=== PATIENT | female | born 1985 | race Caucasian/White ===

== ENCOUNTER → 2017-01-05 | Outpatient (CLI) | payer MEDICAID ==
[2017-01-05 08:06] LABS: Basophils # (A) 0.1 k/uL (0-0.2); Basophils % (A) 1 %; CH 29.7; CHCM 34.2; Eosinophils # (A) 0.1 k/uL (0-0.7); Eosinophils % (A) 1 %; HCT 41.9 % (34.0-46.0); Luc # (Auto) 0.25; Luc % (Auto) 3; Lymphocytes # (A) 2.8 k/uL (1.0-4.8); Lymphocytes % (A) 36 %; MCH 29.1 pg (25.0-35.0); MCHC 33.3 g/dL (31.0-37.0); MCV 87.4 fL (80.0-100.0); Mean Platelet Volume 6.4; Monocytes # (A) 0.4 k/uL (0-1.0); Monocytes % (A) 5 %; Neutrophils # (A) 4.2 k/uL (1.3-7.7); Neutrophils % (A) 54 %; RDW 12.6 % (11.5-15.5); WBC 7.7 k/uL (3.8-10.6); WBC (Perox) 7.85
[2017-01-05 08:31] LABS: ALT 39 U/L (9-52); AST 25 U/L (14-36); Alkaline Phosphatase 109 U/L (38-126); Anion Gap 11 mmol/L; Blood Urea Nitrogen 12 mg/dL (7-17); Calcium 9.3 mg/dL (8.4-10.2); Carbon Dioxide 24 mmol/L (22-30); Chloride 107 mmol/L (98-107); Cholesterol 195 mg/dL (<200); Glucose 100 mg/dL (74-99); HDL Cholesterol 40 mg/dL (40-60); Magnesium 1.8 mg/dL (1.6-2.3); Non-African American GFR(MDRD) >60 (>60 ml/min/1.73 sqM); Potassium 4.3 mmol/L (3.5-5.1); Sodium 142 mmol/L (137-145); Total Bilirubin 0.6 mg/dL (0.2-1.3); Total Protein 7.7 g/dL (6.3-8.2); Triglycerides 154 mg/dL (<150)
[2017-01-05 10:37] LABS: Hemoglobin A1C 5.1 % (4.2-6.1)
== END | disposition home or self-care (01) ==
LOC: LABWHC1 07:04
PROVIDERS: ATTEND Family Medicine
DX: E66.01 Morbid (severe) obesity due to excess calories (principal); R60.9 Edema, unspecified; K21.9 Gastro-esophageal reflux disease without esophagitis
CPT/HCPCS: 36415; 80053; 80061; 83036; 83735; 84439; 84443; 85025

== ENCOUNTER → 2018-01-11 | Outpatient (CLI) | payer MEDICAID ==
[2018-01-11 08:26] LABS: T4, Free (Free Thyroxine) 1.02 ng/dL (0.78-2.19)
--- NOTE | 2018-01-11 11:41 | US ---
EXAMINATION TYPE: US pelvis complete transvag DATE OF EXAM: 01/11/2018 COMPARISON: NONE CLINICAL HISTORY: N91.2 Amenorrhea. TECHNIQUE: Transabdominal sonographic images of the pelvis were acquired. Transvaginal sonographic images were medically necessary to better assess the following anatomy: ovaries and endometrium Date of LMP: 4 months prior EXAM MEASUREMENTS: Uterus: 8.3 x 4.4 x 4.3 cm Endometrial Stripe: 0.5 cm Right Ovary: 2.2 x 1.5 x 1.7 cm Left Ovary: 2.1 x 1.5 x 1.7 cm 1. Uterus: heterogeneous, probably fibroid lower measuring 1.7 x 1.3 x 1.5cm and nabothian cysts are noted in the cervix 2. Endometrium: wnl 3. Right Ovary: somewhat obscured by overlying bowel gas, portions visualized wnl 4. Left Ovary: somewhat obscured by overlying bowel gas, portions visualized wnl wnl5. Bilateral Adnexa: wnl 6. Posterior cul-de-sac: wnl IMPRESSION: Exam is somewhat limited. Consider follow-up as indicated.
== END | disposition home or self-care (01) ==
LOC: RADUSWWP 07:00
PROVIDERS: ATTEND Obstetrics & Gynecology
DX: N91.2 Amenorrhea, unspecified (principal)
CPT/HCPCS: 36415; 76830; 76856; 84146; 84439; 84443

== ENCOUNTER 2018-04-01 19:09 | Emergency (ER) | payer MEDICAID ==
[2018-04-01 19:43] VITALS: BP 123/83; PULSE 95; RESP 18; TEMP 99
--- NOTE | 2018-04-01 20:13 | ED ---
Lower Extremity Injury HPI - General Chief Complaint: Extremity Injury, Lower Stated Complaint: L Leg Injury Time Seen by Provider: 04/01/18 19:52 Source: patient, RN notes reviewed, old records reviewed Mode of arrival: wheelchair Limitations: physical limitation - History of Present Illness Initial Comments: This Patient is a 32-year-old female presents emergency department today chief complaint of a sudden popping sensation in her lower calf she was running while playing baseball today. Patient states that she felt a pop with of the back. Unable to bear weight afterwards. She denies any foot or ankle pain. She states the pain is in the medial calf radiating towards the knee. Patient states that she's had previous ankle and foot surgery. She denies any other symptoms at this time. - Related Data Previous Rx's Medication Instructions Recorded Acetaminophen with Codeine 1 tab PO Q6H PRN 3 Days #12 tab 04/01/18 [Tylenol w/codeine #3] Ibuprofen 600 mg PO TID #20 tablet 04/01/18 Allergies Allergy/AdvReac Type Severity Reaction Status Date / Time No Known Allergies Allergy Verified 04/01/18 19:43 Review of Systems ROS Statement: Those systems with pertinent positive or pertinent negative responses have been documented in the HPI. ROS Other: All systems not noted in ROS Statement are negative. Past Medical History Past Medical History: GERD/Reflux Additional Past Medical History / Comment(s): irregular oeriods History of Any Multi-Drug Resistant Organisms: None Reported Past Surgical History: Tonsillectomy Additional Past Surgical History / Comment(s): pyl. cyst Past Psychological History: No Psychological Hx Reported Smoking Status: Never smoker Past Alcohol Use History: None Reported Past Drug Use History: None Reported General Exam - General Exam Comments Initial Comments: This is a 32-year-old female. Alert and oriented. No significant distress. Limitations: physical limitation General appearance: alert, in no apparent distress Head exam: Present: atraumatic, normocephalic, normal inspection Eye exam: Present: normal appearance, PERRL, EOMI. Absent: scleral icterus, conjunctival injection, periorbital swelling ENT exam: Present: normal exam, mucous membranes moist Neck exam: Present: normal inspection Respiratory exam: Present: normal lung sounds bilaterally. Absent: respiratory distress, wheezes, rales, rhonchi, stridor Cardiovascular Exam: Present: regular rate, normal rhythm, normal heart sounds. Absent: systolic murmur, diastolic murmur, rubs, gallop, clicks GI/Abdominal exam: Present: soft, normal bowel sounds. Absent: distended, tenderness, guarding, rebound, rigid Extremities exam: Present: normal inspection, full ROM, normal capillary refill. Absent: tenderness, pedal edema, joint swelling, calf tenderness Left Knee exam: Present: normal inspection, full ROM Lower Leg exam: Present: full ROM, tenderness (Patient has tenderness over the medial gastrocnemius.), swelling Ankle exam: Present: normal inspection, full ROM Foot/Toe exam: Present: normal inspection, full ROM Neurovascular tendon exam: Present: no vascular compromise Gait: observed and limited by pain Back exam: Present: normal inspection Neurological exam: Present: alert, oriented X3, CN II-XII intact Psychiatric exam: Present: normal affect, normal mood Course Vital Signs 04/01/18 19:40 Temperature 99.0 F Pulse Rate 95 Respiratory 18 Rate Blood Pressure 123/83 O2 Sat by Pulse 97 Oximetry Medical Decision Making - Medical Decision Making Patient is a 32-year-old feel presents today with chief complaint of left leg pain after she was running felt a pop in her calf. At this time patient's x- rays of her tib-fib and knee were reviewed and negative for any acute process. She is quite tender over the medial gastrocnemius. Ultrasound of the area was performed check for soft tissue swelling or masses. They don't see any fluid collection. No evidence of popliteal cyst. At this time Patient informed of results. 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 Discharged with crutches and temperature medicine and pain medicine. Discussed PCP follow-up all. All questions answered return parameters were discussed. - Radiology Data Radiology results: report reviewed X-ray of the knee and tib-fib are negative for any acute process. Ultrasound of the laceration is evidence of fluid collection or popliteal mass. Disposition Clinical Impression: Gastrocnemius muscle tear, Sprain of leg Disposition: HOME SELF-CARE Condition: Good Instructions: Leg Sprain (ED) Additional Instructions: Patient has follow-up with primary care physician. Return to emergency department if any alarming signs or symptoms occur. Follow-up with orthopedic physician as well. Prescriptions: Acetaminophen with Codeine [Tylenol w/codeine #3] 1 tab PO Q6H PRN 3 Days #12 tab PRN Reason: Pain Ibuprofen 600 mg PO TID #20 tablet Is patient prescribed a controlled substance at d/c from ED?: Yes If prescribed controlled substance>3 days was MAPS reviewed?: Prescribed <3 Days If Rx opioid, was Start Talking consent form obtained?: Yes Referrals: Kandi De Oliveira MD [Primary Care Provider] - 1-2 days Valdemar Nevarez MD [Medical Doctor] - 1-2 days Time of Disposition: 20:59
--- NOTE | 2018-04-01 20:44 | XR ---
EXAMINATION TYPE: XR tibia fibula LT DATE OF EXAM: 04/01/2018 COMPARISON: NONE HISTORY: Pain TECHNIQUE: 2 views FINDINGS: I see no fracture nor dislocation. Knee joint and ankle joint appear intact. IMPRESSION: Negative left tibia and fibula exam.
--- NOTE | 2018-04-01 20:44 | XR ---
EXAMINATION TYPE: XR knee complete LT DATE OF EXAM: 04/01/2018 COMPARISON: NONE HISTORY: Pain TECHNIQUE: 3 views FINDINGS: I see no fracture nor dislocation. Joint spaces are normal. There is no sign of knee joint effusion. IMPRESSION: Negative left knee exam.
--- NOTE | 2018-04-01 20:46 | US ---
EXAMINATION TYPE: US extremity nonvasc mass LT DATE OF EXAM: 04/01/2018 COMPARISON: NONE CLINICAL HISTORY: Pain. Lt knee lump running playing softball heard a pop. No fluid pocket visualized. IMPRESSION: No solid or cystic mass identified. There is no evidence of popliteal cyst.
== END 2018-04-01 21:21 | disposition home or self-care (01) ==
LOC: EC 19:09
DX: S86.812A Strain of other muscle(s) and tendon(s) at lower leg level, left leg, initial encounter (principal); X58.XXXA Exposure to other specified factors, initial encounter; Y93.64 Activity, baseball
CPT/HCPCS: 73590; 73562; 76882; 99284; L1830

== ENCOUNTER → 2018-09-17 | Outpatient (CLI) | payer MEDICAID ==
[2018-09-17 07:46] LABS: Basophils # (A) 0.1 k/uL (0-0.2); Basophils % (A) 1 %; Eosinophils # (A) 0.3 k/uL (0-0.7); Eosinophils % (A) 3 %; HCT 40.4 % (34.0-46.0); Lymphocytes # (A) 2.4 k/uL (1.0-4.8); Lymphocytes % (A) 29 %; MCH 27.6 pg (25.0-35.0); MCHC 32.1 g/dL (31.0-37.0); MCV 86.1 fL (80.0-100.0); Mean Platelet Volume 5.8; Monocytes # (A) 0.3 k/uL (0-1.0); Monocytes % (A) 4 %; Neutrophils # (A) 5.2 k/uL (1.3-7.7); Neutrophils % (A) 62 %; Platelet Count 393 k/uL (150-450); RBC 4.69 m/uL (3.80-5.40); RDW 13.1 % (11.5-15.5); WBC 8.4 k/uL (3.8-10.6)
[2018-09-17 12:33] LABS: Albumin/Globulin Ratio 1.54 (1.20-2.10); Anion Gap 10.7 mmol/L (4.00-12.00); Calcium 9.1 mg/dL (8.7-10.3); Carbon Dioxide 25.3 mmol/L (21.6-31.8); Globulin 2.6 g/dL (1.6-3.3); LDL Cholesterol,Calculated 121.2 mg/dL (0.0-131.0); Potassium 4.4 mmol/L (3.5-5.5); Total Bilirubin 0.2 mg/dL (0.2-1.2); Total Protein 6.6 g/dL (6.2-8.2); VLDL Calculation 24.8 mg/dL (5.00-40.00)
[2018-09-17 15:18] LABS: Hemoglobin A1C 5.3 % (4.0-6.0)
== END | disposition home or self-care (01) ==
LOC: LABWHC1 07:19
PROVIDERS: ATTEND Family Medicine
DX: Z00.00 Encounter for general adult medical examination without abnormal findings (principal); R73.01 Impaired fasting glucose; Q63.9 Congenital malformation of kidney, unspecified; E66.01 Morbid (severe) obesity due to excess calories; Z68.42 Body mass index [BMI] 45.0-49.9, adult
CPT/HCPCS: 36415; 80053; 80061; 83036; 85025

== ENCOUNTER → 2019-02-03 | Outpatient (CLI) | payer MEDICAID ==
--- NOTE | 2019-02-04 10:25 | MR ---
EXAMINATION TYPE: MR knee RT wo con DATE OF EXAM: 02/03/2019 COMPARISON: 04/01/2018 HISTORY: R knee pain TECHNIQUE: Multiplanar, multisequence imaging of the right knee is performed without IV contrast. FINDINGS: MEDIAL MENISCUS: There is increased signal within the posterior horn of the medial meniscus without c ontinuity with the articular surface related to either meniscal contusion or myxoid degeneration. How ever there is a focal cleft of the meniscal root representing small radial tear. LATERAL MENISCUS: Anterior and posterior horns are intact without tear. CRUCIATE LIGAMENTS: The anterior and posterior cruciate ligaments are intact and unremarkable. COLLATERAL LIGAMENTS: The medial collateral ligament and lateral collateral ligament complex are inta ct. However there is a small amount of increased signal seen over the medial collateral ligament that is nonspecific. Correlate for medial collateral ligament bursitis. EXTENSOR MECHANISM: Visualized quadriceps and patellar tendons are intact. EFFUSION: No significant suprapatellar joint effusion. POPLITEAL CYST: No popliteal/russell cyst. TRICOMPARTMENT SPACES: Joint spaces are maintained CARTILAGE: As a focal area of undermining of the trochlear cartilage. Lateral compartment and patello femoral compartment are otherwise unremarkable. There is a partial chondral defect of the weightbeari ng surface of the medial femoral condyle measuring 1.1 cm. No underlying bone marrow edema. BONE MARROW SIGNAL: No focal abnormal marrow signal is appreciated. OTHER: Minimal prepatellar and infrapatellar soft tissue swelling is seen without increased signal o f the patellar tendon or quadriceps tendon. IMPRESSION: 1. Small radial tear from the inferior articular surface of the posterior horn of the medial meniscus as it meets the meniscal root. There is associated intrameniscal signal of the posterior horn repres enting either meniscal contusion or myxoid degeneration. 2. Very minimal increased signal over the medial collateral ligament is nonspecific and could relate to mild medial collateral ligament bursitis. 3. Mild chondrosis of the medial compartment and patellofemoral compartment.
== END | disposition home or self-care (01) ==
LOC: RADMRIMAIN 12:39
PROVIDERS: ATTEND Orthopaedic Surgery
DX: S83.241A Other tear of medial meniscus, current injury, right knee, initial encounter (principal); M76.41 Tibial collateral bursitis [Pellegrini-Stieda], right leg; M94.8X6 Other specified disorders of cartilage, lower leg

== ENCOUNTER → 2019-07-15 | Outpatient (CLI) | payer MEDICAID ==
--- NOTE | 2019-07-15 08:49 | MM ---
Reason for exam: screening (asymptomatic). Baseline mammogram. History: Patient is nulliparous. Family history of breast cancer in grandmother at age 50 and breast cancer in paternal aunt at age 63. Taking hormonal contraceptives beginning at age 24. Physical Findings: Nurse did not find any significant physical abnormalities on exam. MG 3D Screening Mammo W/Cad Bilateral CC and MLO view(s) were taken. There are scattered fibroglandular densities. No suspicious abnormality. These results were verbally communicated with the patient and result sheet given to the patient on 07/15/19. ASSESSMENT: Negative, BI-RAD 1 RECOMMENDATION: Routine screening mammogram of both breasts in 1 year. (family history)
== END | disposition home or self-care (01) ==
LOC: RADMAMWWP 06:59
PROVIDERS: ATTEND Obstetrics & Gynecology
DX: Z12.31 Encounter for screening mammogram for malignant neoplasm of breast (principal)
CPT/HCPCS: 77063; 77067

== ENCOUNTER → 2020-06-19 | Outpatient (CLI) | payer MEDICAID ==
[2020-06-19 14:55] LABS: Chol/HDL Ratio 4.41
[2020-06-19 15:04] LABS: Estradiol 25.3 pg/mL; Follicle Stimulating Hormone 6.4 mIU/mL; Luteinizing Hormone 2.3 mIU/mL
[2020-06-19 15:16] LABS: Hemoglobin A1C 5.2 % (4.0-6.0)
[2020-06-19 15:22] LABS: DHEA Sulfate 26.1 ug/dL (26.0-430.0)
[2020-06-19 15:48] LABS: Insulin Level 25.3 mIU/mL (3.0-25.0)
== END | disposition home or self-care (01) ==
LOC: LABWHC1 07:07
PROVIDERS: ATTEND Obstetrics & Gynecology
DX: N91.2 Amenorrhea, unspecified (principal); N91.5 Oligomenorrhea, unspecified
CPT/HCPCS: 36415; 80061; 82627; 82670; 82947; 83001; 83002; 83036; 83525; 84402

== ENCOUNTER → 2020-07-05 | Outpatient (CLI) | payer MEDICAID ==
--- NOTE | 2020-07-05 08:00 | US ---
EXAMINATION TYPE: US pelvis complete transvag transvag DATE OF EXAM: 07/05/2020 COMPARISON: US 01/11/2018 CLINICAL HISTORY: N91.5 Oligomenorrhea. TECHNIQUE: . Transabdominal sonographic images of the pelvis were acquired. Transvaginal sonographi c images were medically necessary to better assess the following anatomy: Endometrium Date of LMP: October 2019 EXAM MEASUREMENTS: Uterus: 7.7 x 4.9 x 4.0 cm Endometrial Stripe: 0.2 cm Right Ovary: 2.2 x 1.6 x 1.2 cm Left Ovary: 2.5 x 1.6 x 1.3 cm 1. Uterus: Anteverted Heterogeneous. Hypoechoic area visualized measuring 1.6 x 1.4 x 1.6 cm. Flui d visualized within cervix. nabothian cysts visualized 2. Endometrium: wnl 3. Right Ovary: Multiple follicles visualized 4. Left Ovary: wnl 5. Bilateral Adnexa: wnl 6. Posterior cul-de-sac: wnl IMPRESSION: Small amount of fluid in the cervix, nabothian cyst, there is a fibroid uterus
[2020-07-05 09:05] LABS: ALT 27 U/L (4-34); AST 21 U/L (14-36); African American GFR (CKD) >90 (>60 ml/min/1.73 sqM); Albumin 3.8 g/dL (3.5-5.0); Alkaline Phosphatase 103 U/L (38-126); Anion Gap 5 mmol/L; Blood Urea Nitrogen 18 mg/dL (7-17); Calcium 9.3 mg/dL (8.4-10.2); Carbon Dioxide 30 mmol/L (22-30); Chloride 103 mmol/L (98-107); Glucose 86 mg/dL (74-99); Non-African American GFR(CKD) 80 (>60 ml/min/1.73 sqM); Sodium 138 mmol/L (137-145); Total Bilirubin 0.6 mg/dL (0.2-1.3)
[2020-07-05 09:42] LABS: Potassium 4.3 mmol/L (3.5-5.1)
[2020-07-05 14:26] LABS: Insulin Level 23.7 mIU/mL (3.0-25.0)
[2020-07-05 14:55] LABS: Thyroid Peroxidase Antibodies 41.3 U/mL (0.0-60.0)
[2020-07-05 15:21] LABS: Prolactin 60.5 ng/mL (2.8-29.2)
== END | disposition home or self-care (01) ==
LOC: RADUSWWP 07:03
PROVIDERS: ATTEND Obstetrics & Gynecology
DX: D25.9 Leiomyoma of uterus, unspecified (principal); N88.8 Other specified noninflammatory disorders of cervix uteri; E28.2 Polycystic ovarian syndrome; R53.83 Other fatigue
CPT/HCPCS: 76830; 76856; 80053; 82533; 83525; 84146; 84443; 86376

== ENCOUNTER → 2020-07-11 | Outpatient (CLI) | payer MEDICAID ==
[2020-07-11 14:14] LABS: Prolactin 57.7 ng/mL (2.8-29.2)
== END | disposition home or self-care (01) ==
LOC: LABWHC1 07:07
PROVIDERS: ATTEND Internal Medicine Endocrinology, Diabetes & Metabolism
DX: E28.2 Polycystic ovarian syndrome (principal); E88.81 Metabolic syndrome and other insulin resistance; R53.83 Other fatigue
CPT/HCPCS: 36415; 82024; 82533; 84146

== ENCOUNTER → 2020-07-27 | Outpatient (CLI) | payer MEDICAID ==
--- NOTE | 2020-07-27 07:03 | MR ---
EXAMINATION TYPE: MR pituitary wo/w con DATE OF EXAM: 07/27/2020 COMPARISON: CT brain May 16, 2011. HISTORY: Hyperprolactinemia TECHNIQUE: Multiplanar, multisequence images of the brain and brainstem is performed without and with IV contras t, utilizing 13 mL intravenous Gadavist . Pituitary gland protocol. FINDINGS: Pituitary gland measures within normal limits in size for patient's age and gender, superio r concave border is noted. Slight suprasellar extension is seen but is consistent with age and gender . Pituitary stalk shows homogeneous enhancement extending just left of midline coronal image 12. Ther e is suspicious ovoid T1 hyperintense and T2 hyperintense lesion or area with nonenhancement anterior right aspect measuring roughly 3.5 mm craniocaudal by 4.5 mm transversely image 10 series 50 1 x 4.1 mm AP sagittal image 11 series 601 suspicious for focal microadenoma. Optic chiasm is not effaced. Midline structures demonstrate normal morphology. The craniocervical junction appears within normal limits. No gross hydrocephalus. IMPRESSION: Lesion of nonenhancement within sella or the pituitary gland suspicious for microadenoma as detailed above.
== END | disposition home or self-care (01) ==
LOC: RADMRIMAIN 06:07
PROVIDERS: ATTEND Internal Medicine Endocrinology, Diabetes & Metabolism
DX: E22.1 Hyperprolactinemia (principal)
CPT/HCPCS: 70553; A9585

== ENCOUNTER → 2020-08-20 | Outpatient (CLI) | payer MEDICAID ==
--- NOTE | 2020-08-30 09:21 | HM ---
48 hour Holter monitor shows sinus mechanism heart rates ranging from 52-141 beats a minute average 76 beats a minute Intermittent PVCs of 1 single morphology but overall PVC burden is very low and is less than 1% No sustained or nonsustained arrhythmias MTDD
== END | disposition home or self-care (01) ==
LOC: RADECHMAIN 12:31
PROVIDERS: ATTEND Family Medicine
DX: I49.3 Ventricular premature depolarization (principal)
CPT/HCPCS: 93225; 93226

== ENCOUNTER → 2020-10-02 | Outpatient (CLI) | payer MEDICAID ==
[2020-10-02 12:33] LABS: Prolactin 13.2 ng/mL (2.8-29.2)
== END | disposition home or self-care (01) ==
LOC: LABWHC1 06:59
PROVIDERS: ATTEND Internal Medicine Endocrinology, Diabetes & Metabolism
DX: D53.2 Scorbutic anemia (principal)
CPT/HCPCS: 36415; 82024; 82533; 84146; 84305; 84439; 84443

== ENCOUNTER 2020-12-01 10:04 | Emergency (ER) | payer MEDICAID ==
--- NOTE | 2020-12-01 10:47 | XR ---
EXAMINATION TYPE: XR chest 2V DATE OF EXAM: 12/01/2020 COMPARISON: 02/15/2014 HISTORY: Cough for 2 weeks TECHNIQUE: Frontal and lateral views of the chest are obtained. FINDINGS: Suggestion of mild small air space opacities bilaterally which were likely present on the prior study. Exam is limited by suboptimal inspiration. There is no pleural effusion or pneumothorax. The heart and pulmonary vasculature are normal. The osseous structures are intact. IMPRESSION: Several scattered small air space opacities not present on the prior study just of acute pneumonic process.
[2020-12-01] MEDS ORDERED: ONDANSETRON 4 MG/2 ML VIAL IVP STA (11:15)
[2020-12-01] MEDS ORDERED: SODIUM CHLORIDE 0.9% 1,000 ML IV STA (11:15)
[2020-12-01 11:35] VITALS: RESP 18
[2020-12-01] MEDS ORDERED: BAMLANIVIMAB (EUA) 700 MG, ETESEVIMAB (EUA) 1,400 MG in SODIUM CHLORIDE 0.9% 50 ML IVPB ONE (12:00)
--- NOTE | 2020-12-01 12:05 | ED ---
URI HPI - General Chief Complaint: Upper Respiratory Infection Stated Complaint: Covid+,Worsening symptoms Time Seen by Provider: 12/01/20 11:00 Source: patient Mode of arrival: ambulatory Limitations: no limitations - History of Present Illness Initial Comments: Patient is a 35-year-old female presenting to the emergency department with concerns for worsening Covid symptoms. Patient states her symptoms began approximately 8 days ago, she had a positive test result 5 days ago. Patient states her symptoms have been a cough, shortness of breath, occasional fevers and nausea and vomiting. She states she felt like her cough and shortness of breath was getting worse today associated decided to be seen. She denies history of asthma, COPD, is a nonsmoker. He has not had any Tylenol or Motrin today. Her appetite has been low but she has been tolerating fluids. She denies any chest pains. She has no further complaints at this time. Upon arri leticia to the ER, her vital signs are stable. - Related Data Previous Rx's Medication Instructions Recorded Acetaminophen with Codeine 1 tab PO Q6H PRN 3 Days #12 tab 04/01/18 [Tylenol w/codeine #3] Ibuprofen 600 mg PO TID #20 tablet 04/01/18 Dexamethasone [Decadron] 6 mg PO DAILY 5 Days #5 tablet 12/01/20 Allergies Allergy/AdvReac Type Severity Reaction Status Date / Time No Known Allergies Allergy Verified 04/01/18 19:43 Review of Systems ROS Statement: Those systems with pertinent positive or pertinent negative responses have been documented in the HPI. ROS Other: All systems not noted in ROS Statement are negative. Past Medical History Past Medical History: GERD/Reflux Additional Past Medical History / Comment(s): irregular oeriods History of Any Multi-Drug Resistant Organisms: None Reported Past Surgical History: Tonsillectomy Additional Past Surgical History / Comment(s): pyl. cyst Past Psychological History: No Psychological Hx Reported Smoking Status: Never smoker Past Alcohol Use History: None Reported Past Drug Use History: None Reported General Exam - General Exam Comments Initial Comments: GENERAL: Patient is well-developed and well-nourished. Patient is nontoxic and in no acute distress. HEAD: Atraumatic, normocephalic. EYES: Pupils equal round and reactive to light, extraocular movements intact, sclera anicteric, conjunctiva are normal. Eyelids were unremarkable. ENT: TMs normal, nares patent, oropharynx clear without exudates. Moist mucous membranes. NECK: Normal range of motion, supple without lymphadenopathy or JVD. LUNGS: Unlabored respirations. Breath sounds clear to auscultation bilaterally and equal. No wheezes rales or rhonchi. HEART: Regular rate and rhythm without murmurs, rubs or gallops. ABDOMEN: Soft, nontender, normoactive bowel sounds. No guarding, no rebound. No masses appreciated. : Deferred MUSCULOSKELETAL: Normal extremities with adequate strength and normal range of motion, no pitting or edema. No clubbing or cyanosis. NEUROLOGICAL: Patient is alert and oriented x 3. Motor and sensory are also intact. Cranial nerves II through XII grossly intact. Symmetrical smile. Normal speech, normal gait. PSYCH: Normal mood, normal affect. SKIN: Warm, Dry, normal turgor, no rashes or lesions noted. Limitations: no limitations Course Vital Signs 12/01/20 12/01/20 12/01/20 10:12 11:34 12:18 Temperature 99 F 100.1 F H Pulse Rate 109 H 95 87 Respiratory 22 18 18 Rate Blood Pressure 139/85 91/76 133/68 O2 Sat by Pulse 99 95 93 L Oximetry 12/01/20 12/01/20 13:07 13:21 Temperature 99.4 F 99.2 F Pulse Rate 81 81 Respiratory 18 18 Rate Blood Pressure 116/71 112/62 O2 Sat by Pulse 94 L 96 Oximetry Medical Decision Making - Medical Decision Making Patient is a 35-year-old female here with worsening Covid symptoms. Her symptoms began 8 days ago, she had a positive test 5 days ago. Her vital signs are stable upon arrival here, afebrile, 98% on room air. Her exam is unremarkable. Chest x-ray shows scattered small airspace opacities, no pleural effusion. Patient does meet qualifications for Covid anti-body therapy. Patient given some fluids and Zofran as well. Since vital signs have improved, remains stable. Patient is stable for discharge. I will send her home with a course of steroids, she can continue Tylenol or Motrin for fever control. She can follow up with her PCP. Return parameters were discussed with the patient she verbalized understanding. Case discussed with Dr. Milian. Disposition Clinical Impression: COVID-19 Disposition: HOME SELF-CARE Condition: Stable Instructions (If sedation given, give patient instructions): Coronavirus Disease 2019 (COVID-19) Additional Instructions: Please return to the Emergency Department if symptoms worsen or any other concerns. Take steroids as prescribed, starting today. Alternate between Tylenol and Motrin for fever control, body aches. Prescriptions: Dexamethasone [Decadron] 6 mg PO DAILY 5 Days #5 tablet Is patient prescribed a controlled substance at d/c from ED?: No Referrals: Meryl Patrick MD [Primary Care Provider] - 1-2 days Time of Disposition: 14:20
[2020-12-01] MEDS ORDERED: ACETAMINOPHEN TAB 500 MG TAB PO STA (12:53)
[2020-12-01 13:24] VITALS: TEMP 99.2
[2020-12-01 14:34] VITALS: BP 103/58; PULSE 88
== END 2020-12-01 14:37 | disposition home or self-care (01) ==
LOC: EC 10:04
DX: U07.1 COVID-19 (principal); K21.9 Gastro-esophageal reflux disease without esophagitis
CPT/HCPCS: 71046; 99284; 96365; 96375; 96361; J2405; Q0245

== ENCOUNTER → 2021-01-29 | Outpatient (CLI) | payer MEDICAID | END | disposition home or self-care (01) | LOC: LABWHC1 06:59 | PROVIDERS: ATTEND Internal Medicine Endocrinology, Diabetes & Metabolism | DX: D35.2 Benign neoplasm of pituitary gland (principal) | CPT/HCPCS: 36415; 84146 ==

== ENCOUNTER 2021-05-07 06:54 | Emergency (ER) | payer MEDICAID ==
[2021-05-07 07:02] VITALS: TEMP 98.9
--- NOTE | 2021-05-07 07:28 | ED ---
General Adult HPI - General Chief complaint: Upper Respiratory Infection Stated complaint: MOLINA Time Seen by Provider: 05/07/21 07:11 Source: patient Mode of arrival: ambulatory Limitations: no limitations - History of Present Illness Initial comments: 36-year-old female presents to the emergency room for not feeling well. Patient states she started to get sick 6 days ago and it is not improving. Patient reports that her cough is keeping her up at night. Patient denies shortness of breath or chest pain. Patient reports she has congestion as well. Denies sore throat. Denies fevers. Patient states that she had coronavirus in November and has been vaccinated.Patient has no other complaints at this time including shortness of breath, chest pain, abdominal pain, nausea or vomiting, headache, or visual changes. - Related Data Home Medications Medication Instructions Recorded Confirmed Cabergoline 0.25 mg PO SUWE 05/07/21 05/07/21 Omeprazole Magnesium [PriLOSEC] 20 mg PO DAILY 05/07/21 05/07/21 guaiFENesin [Mucinex] 600 mg PO BID 05/07/21 05/07/21 Previous Rx's Medication Instructions Recorded Albuterol Inhaler [Ventolin Hfa 2 puff INHALATION RT-QID PRN #8 gm 05/07/21 Inhaler] Benzonatate [Tessalon Perles] 200 mg PO Q8H PRN #15 cap 05/07/21 Pseudoephedrine 12Hr [Sudafed 12 120 mg PO Q12HR PRN #20 tab 05/07/21 Hour] predniSONE 50 mg PO DAILY #5 tablet 05/07/21 Allergies Allergy/AdvReac Type Severity Reaction Status Date / Time No Known Allergies Allergy Verified 05/07/21 09:21 Review of Systems ROS Statement: Those systems with pertinent positive or pertinent negative responses have been documented in the HPI. ROS Other: All systems not noted in ROS Statement are negative. Past Medical History Past Medical History: GERD/Reflux Additional Past Medical History / Comment(s): irregular oeriods, tumor History of Any Multi-Drug Resistant Organisms: None Reported Past Surgical History: Tonsillectomy Additional Past Surgical History / Comment(s): pyl. cyst Past Psychological History: No Psychological Hx Reported Smoking Status: Never smoker Past Alcohol Use History: None Reported Past Drug Use History: None Reported General Exam Limitations: no limitations General appearance: alert Head exam: Present: atraumatic Eye exam: Present: normal appearance, PERRL, EOMI. Absent: scleral icterus ENT exam: Present: normal exam, mucous membranes moist Neck exam: Present: normal inspection, full ROM. Absent: tenderness Respiratory exam: Present: normal lung sounds bilaterally. Absent: respiratory distress, wheezes Cardiovascular Exam: Present: regular rate, normal rhythm, normal heart sounds GI/Abdominal exam: Present: soft, normal bowel sounds. Absent: distended, tenderness Course Vital Signs 05/07/21 07:00 Temperature 98.9 F Pulse Rate 99 Respiratory 22 Rate Blood Pressure 148/94 O2 Sat by Pulse 98 Oximetry Medical Decision Making - Medical Decision Making Vitals are stable. Patient is well-appearing. Lungs sounds do reveal minimal wheezing. Chest x-ray shows no acute process. cephid 4 plex was obtained given we wanted to test patient for both influenza and told that it. She did actually test positive for RSV. Patient will be treated with steroids and inhaler. She will return for any worsening symptoms and otherwise follow-up with primary care. - Lab Data Lab Results 05/07/21 Range/Units 07:49 Influenza Type A (PCR) Not Detected (Not Detectd) Influenza Type B (PCR) Not Detected (Not Detectd) RSV (PCR) Detected A (Not Detectd) SARS-CoV-2 (PCR) Not Detected (Not Detectd) Disposition Clinical Impression: RSV (acute bronchiolitis due to respiratory syncytial virus) Disposition: HOME SELF-CARE Condition: Good Instructions (If sedation given, give patient instructions): Respiratory Syncytial Virus (ED) Additional Instructions: Please follow-up with your doctor in one to 2 days. Return to the emergency room for any worsening symptoms. Prescriptions: predniSONE 50 mg PO DAILY #5 tablet Pseudoephedrine 12Hr [Sudafed 12 Hour] 120 mg PO Q12HR PRN #20 tab PRN Reason: Cough Benzonatate [Tessalon Perles] 200 mg PO Q8H PRN #15 cap PRN Reason: Cough Albuterol Inhaler [Ventolin Hfa Inhaler] 2 puff INHALATION RT-QID PRN #8 gm PRN Reason: Shortness Of Breath Is patient prescribed a controlled substance at d/c from ED?: No Referrals: Meryl Patrick MD [Primary Care Provider] - 1-2 days Time of Disposition: 09:52
--- NOTE | 2021-05-07 08:26 | XR ---
EXAMINATION TYPE: XR chest 1V portable DATE OF EXAM: 05/07/2021 COMPARISON: 12/02/2019 HISTORY: , Cough TECHNIQUE: Single frontal view of the chest is obtained. FINDINGS: There is no focal air space opacity, pleural effusion, or pneumothorax seen. The cardiac silhouette size is within normal limits. The osseous structures are intact. Heart size stable. No o vert failure. IMPRESSION: No acute process.
[2021-05-07 10:26] VITALS: BP 142/90; PULSE 87; RESP 20
== END 2021-05-07 10:26 | disposition home or self-care (01) ==
LOC: EC 06:54
DX: R05 Cough (principal); J21.0 Acute bronchiolitis due to respiratory syncytial virus; K21.9 Gastro-esophageal reflux disease without esophagitis; Z79.52 Long term (current) use of systemic steroids
CPT/HCPCS: 71045; 87636; 99283

== ENCOUNTER → 2021-05-18 | Outpatient (CLI) | payer MEDICAID ==
[2021-05-18 20:08] LABS: Prolactin 25.6 ng/mL (2.8-29.2)
== END | disposition home or self-care (01) ==
LOC: LABWHC1 08:01
PROVIDERS: ATTEND Internal Medicine Endocrinology, Diabetes & Metabolism
DX: D35.2 Benign neoplasm of pituitary gland (principal)
CPT/HCPCS: 36415; 82024; 82533; 84146; 84305; 84439; 84443

== ENCOUNTER → 2021-05-23 | Outpatient (CLI) | payer MEDICAID ==
--- NOTE | 2021-05-24 09:15 | MM ---
Reason for exam: screening (asymptomatic). Last mammogram was performed 1 year and 10 months ago. History: Patient is nulliparous. Family history of breast cancer in grandmother at age 50 and breast cancer in paternal aunt at age 63. Took hormonal contraceptives beginning at age 24. Physical Findings: A clinical breast exam by your physician is recommended on an annual basis and results should be correlated with mammographic findings. MG 3D Screening Mammo W/Cad Bilateral CC and MLO view(s) were taken. Prior study comparison: July 15, 2019, bilateral MG 3d screening mammo w/cad. There are scattered fibroglandular densities. Focal asymmetry lower left MLO view zone B/C. ASSESSMENT: Incomplete: need additional imaging evaluation, BI-RAD 0 RECOMMENDATION: Special view mammogram of the left breast. If lesion persists on supplemental views, image directed ultrasound is recommended. [facility] will attempt to contact patient to return for supplemental views and ultrasound if indicated.
== END | disposition home or self-care (01) ==
LOC: RADMAMWWP 08:19
PROVIDERS: ATTEND Obstetrics & Gynecology
DX: Z12.31 Encounter for screening mammogram for malignant neoplasm of breast (principal); Z80.3 Family history of malignant neoplasm of breast
CPT/HCPCS: 77063; 77067

== ENCOUNTER → 2021-05-27 | Outpatient (CLI) | payer MEDICAID ==
--- NOTE | 2021-05-27 08:51 | MM ---
Reason for exam: additional evaluation requested from abnormal screening. Last mammogram was performed less than 1 month ago. History: Patient is nulliparous. Family history of breast cancer in grandmother at age 50 and breast cancer in paternal aunt at age 63. Took hormonal contraceptives beginning at age 24. Physical Findings: Nurse did not find any significant physical abnormalities on exam. MG 3D Work Up W/Cad LT Spot compression XCCL, spot compression MLO, and ML view(s) were taken of the left breast. Prior study comparison: May 23, 2021, bilateral MG 3d screening mammo w/cad. July 15, 2019, bilateral MG 3d screening mammo w/cad. The breast tissue is heterogeneously dense. This may lower the sensitivity of mammography. Focal asymmetry lower ML disperses on compression. This finding is changed when compared with previous exams. These results were verbally communicated with the patient and result sheet given to the patient on 05/27/21. ASSESSMENT: Probably benign, BI-RAD 3 RECOMMENDATION: Follow-up diagnostic mammogram of the left breast in 6 months.
== END | disposition home or self-care (01) ==
LOC: RADMAMWWP 07:05
PROVIDERS: ATTEND Obstetrics & Gynecology
DX: R92.8 Other abnormal and inconclusive findings on diagnostic imaging of breast (principal); Z80.3 Family history of malignant neoplasm of breast; Z79.3 Long term (current) use of hormonal contraceptives
CPT/HCPCS: 77061; 77065

== ENCOUNTER → 2021-11-26 | Outpatient (CLI) | payer MEDICAID ==
--- NOTE | 2021-11-26 10:28 | MM ---
Reason for exam: follow-up at short interval from prior study. Last mammogram was performed 6 months ago. History: Patient is nulliparous. Family history of breast cancer in grandmother at age 50 and breast cancer in paternal aunt at age 63. Took hormonal contraceptives beginning at age 24. Physical Findings: A clinical breast exam by your physician is recommended on an annual basis and results should be correlated with mammographic findings. MG 3D Diag Mammo W/Cad LT CC, MLO, and spot compression CC view(s) were taken of the left breast. Prior study comparison: May 27, 2021, left breast MG 3d work up w/cad LT. May 23, 2021, bilateral MG 3d screening mammo w/cad. There are scattered fibroglandular densities. Focal asymmetry, disperses on compression. No significant changes when compared with prior studies. ASSESSMENT: Benign, BI-RAD 2 RECOMMENDATION: Routine screening mammogram of both breasts. Back on schedule.
== END | disposition home or self-care (01) ==
LOC: RADMAMWWP 09:39
PROVIDERS: ATTEND Obstetrics & Gynecology
DX: R92.8 Other abnormal and inconclusive findings on diagnostic imaging of breast (principal); Z80.3 Family history of malignant neoplasm of breast
CPT/HCPCS: 77061; 77065

== ENCOUNTER → 2021-12-19 | Outpatient (CLI) | payer MEDICAID ==
[2021-12-19 10:48] LABS: Prolactin 38.5 ng/mL (2.800-29.200); T4, Free (Free Thyroxine) 1.17 ng/dL (0.800-1.800)
[2021-12-19 23:53] LABS: ACTH 7.08 pg/mL (0.00-45.99)
== END | disposition home or self-care (01) ==
LOC: LABWHC1 07:10
PROVIDERS: ATTEND Internal Medicine Endocrinology, Diabetes & Metabolism
DX: D35.2 Benign neoplasm of pituitary gland (principal)
CPT/HCPCS: 36415; 82024; 82533; 84146; 84305; 84439; 84443; 84480

== ENCOUNTER → 2022-05-02 | Outpatient (CLI) | payer MEDICAID ==
[2022-05-02 11:19] LABS: Chol/HDL Ratio 5.04 Ratio; LDL Cholesterol,Calculated 119.3 mg/dL (0.0-131.0)
== END | disposition home or self-care (01) ==
LOC: LABWHC1 07:12
PROVIDERS: ATTEND Family Medicine
DX: Z00.00 Encounter for general adult medical examination without abnormal findings (principal)
CPT/HCPCS: 36415; 80061

== ENCOUNTER → 2022-06-02 | Outpatient (CLI) | payer MEDICAID ==
--- NOTE | 2022-06-02 09:20 | MM ---
Reason for Exam: Screening (asymptomatic). Last mammogram was performed 1 year(s) and 1 month(s) ago. Patient History: Menarche at age 9. Patient has no children. Hormonal Contraceptives, starting at age 24. Maternal grandmother had breast cancer, age 50. Paternal aunt had breast cancer, age 63. Last menstrual period: 05/31/2022 Risk Values: Talia 5 year model risk: 0.6%. NCI Lifetime model risk: 12.2%. Prior Study Comparison: 05/23/2021 Bilateral Screening Mammogram, [facility]. 05/27/2021 Left Diagnostic Mammogram, [facility]. 11/26/2021 Left Diagnostic Mammogram, [facility]. Tissue Density: The breast tissue is heterogeneously dense. This may lower the sensitivity of mammography. Findings: Analyzed By CAD. There is no suspicious group of microcalcifications or new suspicious mass in either breast. Overall Assessment: Negative, BI-RAD 1 Management: Screening Mammogram of both breasts in 1 year. A clinical breast exam by your physician is recommended on an annual basis and results should be correlated with mammographic findings. Electronically signed and approved by: Don Carson M.D.
== END | disposition home or self-care (01) ==
LOC: RADMAMWWP 07:05
PROVIDERS: ATTEND Obstetrics & Gynecology
DX: Z12.31 Encounter for screening mammogram for malignant neoplasm of breast (principal); Z80.3 Family history of malignant neoplasm of breast
CPT/HCPCS: 77063; 77067

== ENCOUNTER → 2022-06-19 | Outpatient (CLI) | payer MEDICAID ==
[2022-06-19 10:42] LABS: Prolactin 31.8 ng/mL (2.800-29.200); T4, Free (Free Thyroxine) 1.09 ng/dL (0.800-1.800)
[2022-06-19 21:37] LABS: ACTH 24.8 pg/mL (0.00-45.99)
== END | disposition home or self-care (01) ==
LOC: LABWHC1 07:14
PROVIDERS: ATTEND Internal Medicine Endocrinology, Diabetes & Metabolism
DX: D35.2 Benign neoplasm of pituitary gland (principal)
CPT/HCPCS: 36415; 82024; 82533; 84146; 84439; 84443; 84480

== ENCOUNTER → 2022-12-17 | Outpatient (CLI) | payer MEDICAID ==
[2022-12-17 11:21] LABS: Prolactin 23.3 ng/mL (2.800-29.200); T4, Free (Free Thyroxine) 1.08 ng/dL (0.800-1.800)
[2022-12-18 00:37] LABS: ACTH 12.4 pg/mL (0.00-45.99)
== END | disposition home or self-care (01) ==
LOC: LABWHC1 07:02
PROVIDERS: ATTEND Internal Medicine Endocrinology, Diabetes & Metabolism
DX: D35.2 Benign neoplasm of pituitary gland (principal)
CPT/HCPCS: 36415; 82024; 82533; 84146; 84439; 84443; 84480

== ENCOUNTER → 2023-07-27 | Outpatient (CLI) | payer MEDICAID ==
[2023-07-27 10:57] LABS: ACTH 18.1 pg/mL (0.00-45.99)
[2023-07-27 11:11] LABS: ALT 17 U/L (8-44); AST 13 U/L (13-35); Albumin/Globulin Ratio 1.54 Ratio (1.60-3.17); Alkaline Phosphatase 90 U/L (41-126); BUN/Creat Ratio 19.38 Ratio (12.00-20.00); Blood Urea Nitrogen 15.5 mg/dL (9.0-27.0); Calcium 9.1 mg/dL (8.7-10.3); Carbon Dioxide 23.3 mmol/L (21.6-31.8); Chloride 107 mmol/L (96-109); Globulin 2.6 g/dL (1.6-3.3); Glucose 94 mg/dL (70-110); Potassium 3.9 mmol/L (3.5-5.5); Sodium 141 mmol/L (135-145); T4, Free (Free Thyroxine) 1.06 ng/dL (0.80-1.80); Total Bilirubin 0.4 mg/dL (0.3-1.2); Total Protein 6.6 g/dL (6.2-8.2)
--- NOTE | 2023-07-28 11:30 | MM ---
Reason for Exam: Screening (asymptomatic). Last mammogram was performed 1 year(s) and 1 month(s) ago. Patient History: Menarche at age 9. Patient has no children. Hormonal Contraceptives, starting at age 24. Maternal grandmother had breast cancer, age 50. Paternal aunt had breast cancer, age 63. Last menstrual period: 07/04/2023 Risk Values: Talia 5 year model risk: 0.7%. NCI Lifetime model risk: 12.1%. Prior Study Comparison: 05/27/2021 Left Diagnostic Mammogram, [facility]. 11/26/2021 Left Diagnostic Mammogram, [facility]. 06/02/2022 Bilateral MG 3D screening mammo w/cad, [facility]. Tissue Density: The breast tissue is heterogeneously dense. This may lower the sensitivity of mammography. Findings: Analyzed By CAD. Increased asymmetric density central lower left breast 7 cm from the nipple. Additional views recommended. No suspicious calcifications seen. Overall Assessment: Incomplete: need additional imaging evaluation, BI-RAD 0 Management: Diagnostic Mammogram of the left breast. . Patient should continue monthly self-breast exams. A clinical breast exam by your physician is recommended on an annual basis. This exam should not preclude additional follow-up of suspicious palpable abnormalities. Note on Talia scores and lifetime risk: 1. A Talia score greater than 3% is considered moderate risk. If this is the case, consider specialist referral to assess eligibility for a risk reducing agent. 2. If overall lifetime risk for the development of breast cancer is 20% or higher, the patient may qualify for future screening with alternating mammogram and breast MRI. Electronically signed and approved by: Paul Lopez M.D. Radiologis
== END | disposition home or self-care (01) ==
LOC: RADMAMWWP 06:54
PROVIDERS: ATTEND Obstetrics & Gynecology
DX: Z12.31 Encounter for screening mammogram for malignant neoplasm of breast (principal); D35.2 Benign neoplasm of pituitary gland; Z80.3 Family history of malignant neoplasm of breast
CPT/HCPCS: 77063; 77067; 80053; 82024; 82533; 84146; 84305; 84439; 84443; 84480

== ENCOUNTER → 2023-07-31 | Outpatient (CLI) | payer MEDICAID ==
--- NOTE | 2023-08-04 11:42 | MM ---
Reason for Exam: Additional evaluation requested from abnormal screening. Last screening mammogram was performed less than 1 month ago. Patient History: Menarche at age 9. Patient has no children. Hormonal Contraceptives, starting at age 24. Maternal grandmother had breast cancer, age 50. Paternal aunt had breast cancer, age 63. Risk Values: Talia 5 year model risk: 0.7%. NCI Lifetime model risk: 12.1%. Prior Study Comparison: 11/26/2021 Left Diagnostic Mammogram, [facility]. 06/02/2022 Bilateral MG 3D screening mammo w/cad, [facility]. 07/27/2023 Bilateral MG 3D screening mammo w/cad, [facility]. Tissue Density: Left: The breast tissue is heterogeneously dense. This may lower the sensitivity of mammography. Findings: Analyzed By CAD. Area of concern/asymmetry compresses out on spot compression imaging. No suspicious masses, calcifications or distortions. Overall Assessment: Benign, BI-RAD 2 Management: Screening Mammogram of both breasts in 1 year. Results were given to the patient verbally at the time of exam. Patient should continue monthly self-breast exams. A clinical breast exam by your physician is recommended on an annual basis. This exam should not preclude additional follow-up of suspicious palpable abnormalities. Note on Talia scores and lifetime risk: 1. A Talia score greater than 3% is considered moderate risk. If this is the case, consider specialist referral to assess eligibility for a risk reducing agent. 2. If overall lifetime risk for the development of breast cancer is 20% or higher, the patient may qualify for future screening with alternating mammogram and breast MRI. Electronically signed and approved by: Evan Spivey DO
== END | disposition home or self-care (01) ==
LOC: RADMAMWWP 06:59
PROVIDERS: ATTEND Obstetrics & Gynecology
DX: R92.332 Mammographic heterogeneous density, left breast (principal); Z80.3 Family history of malignant neoplasm of breast
CPT/HCPCS: 77061; 77065

== ENCOUNTER 2023-10-02 16:07 | Emergency (ER) | payer MEDICAID ==
[2023-10-02 16:32] VITALS: RESP 18
--- NOTE | 2023-10-02 18:16 | ED ---
Female Urogenital HPI - General Chief complaint: Vaginal Bleeding Stated complaint: Vag bleed - excessive Time Seen by Provider: 10/02/23 17:40 Source: patient, RN notes reviewed, old records reviewed Mode of arrival: ambulatory Limitations: no limitations - History of Present Illness Initial comments: This is a 38-year-old female to ER for evaluation of vaginal bleeding. Patient is long and irregular. History of irregular periods but significantly irregular. With occasional headedness and dizziness especially with movement. Patient does not feel like she may pass out has not been sweaty but bleeding has been persistent. She has concern for blood loss MD Complaint: vaginal bleeding -: days(s) Radiation: suprapubic Severity: moderate Severity scale (1-10): 4 Consistency: constant Improves with: none Worsens with: none Last Menstrual Period: 09/12/23 Patient : Yes Associated Symptoms: vaginal bleeding - Related Data Sexually active: No Home Medications Medication Instructions Recorded Confirmed Cabergoline 0.25 mg PO SUWE 05/07/21 10/12/23 Omeprazole Magnesium [PriLOSEC] 20 mg PO DAILY 05/07/21 10/12/23 guaiFENesin [Mucinex] 600 mg PO DAILY 05/07/21 10/12/23 Allergies Allergy/AdvReac Type Severity Reaction Status Date / Time adhesive tape AdvReac Rash/Hives Verified 10/12/23 06:46 Review of Systems ROS Statement: Those systems with pertinent positive or pertinent negative responses have been documented in the HPI. ROS Other: All systems not noted in ROS Statement are negative. Past Medical History Past Medical History: GERD/Reflux Additional Past Medical History / Comment(s): irregular oeriods, tumor History of Any Multi-Drug Resistant Organisms: None Reported Past Surgical History: Tonsillectomy Additional Past Surgical History / Comment(s): pyl. cyst Past Psychological History: No Psychological Hx Reported Smoking Status: Never smoker Past Alcohol Use History: None Reported Past Drug Use History: None Reported General Exam Limitations: no limitations General appearance: alert, in no apparent distress Head exam: Present: atraumatic, normocephalic, normal inspection Eye exam: Present: normal appearance, PERRL, EOMI. Absent: scleral icterus, conjunctival injection, periorbital swelling ENT exam: Present: normal exam, mucous membranes moist Neck exam: Present: normal inspection. Absent: tenderness, meningismus, lymphadenopathy Respiratory exam: Present: normal lung sounds bilaterally. Absent: respiratory distress, wheezes, rales, rhonchi, stridor Cardiovascular Exam: Present: regular rate, normal rhythm, normal heart sounds. Absent: systolic murmur, diastolic murmur, rubs, gallop, clicks GI/Abdominal exam: Present: soft, normal bowel sounds. Absent: distended, tenderness, guarding, rebound, rigid Extremities exam: Present: normal inspection, full ROM, normal capillary refill. Absent: tenderness, pedal edema, joint swelling, calf tenderness Back exam: Present: normal inspection Neurological exam: Present: alert, oriented X3, CN II-XII intact Psychiatric exam: Present: normal affect, normal mood Skin exam: Present: warm, dry, intact, normal color. Absent: rash Course Vital Signs 10/02/23 10/02/23 10/02/23 16:24 19:33 21:01 Temperature 99.0 F 98.9 F Pulse Rate 99 88 Respiratory 18 18 Rate Blood Pressure 136/80 138/84 O2 Sat by Pulse 98 98 Oximetry - Reevaluation(s) Reevaluation #1: Medical records reviewed Reevaluation #2: Patient has no significant active bleeding Reevaluation #3: Patient informed of results and questions answered Reevaluation #4: 38 female to ER for evaluation of significant amount of blood loss during p menses cies with recent prolonged vaginal bleeding, patient has normal hemoglobin here in the ER with normal blood pressures which has remained stable and patient will be discharged home Reevaluation #5: Differential Weakness: Hypoglycemia, shock, sepsis, hyponatremia, anemia, infection, CA, ETOH, adverse medicine reaction, overdose, stroke, this is not meant to be an all-inclusive list. Medical Decision Making - Medical Decision Making 38 female to ER for evaluation of significant amount of blood loss during p menses cies with recent prolonged vaginal bleeding, patient has normal hemoglobin here in the ER with normal blood pressures which has remained stable and patient will be discharged home - Lab Data Result diagrams: 10/02/23 18:29 10/02/23 18:29 Lab Results 10/02/23 10/02/23 Range/Units 18:29 18:29 WBC 10.5 (3.8-10.6) k/uL RBC 3.91 (3.80-5.40) m/uL Hgb 11.5 (11.4-16.0) gm/dL Hct 34.2 (34.0-46.0) % MCV 87.4 (80.0-100.0) fL MCH 29.4 (25.0-35.0) pg MCHC 33.7 (31.0-37.0) g/dL RDW 13.3 (11.5-15.5) % Plt Count 369 (150-450) k/uL MPV 7.1 Neutrophils % 80 % Lymphocytes % 12 % Monocytes % 5 % Eosinophils % 1 % Basophils % 0 % Neutrophils # 8.4 H (1.3-7.7) k/uL Lymphocytes # 1.3 (1.0-4.8) k/uL Monocytes # 0.5 (0-1.0) k/uL Eosinophils # 0.1 (0-0.7) k/uL Basophils # 0.0 (0-0.2) k/uL Sodium 137 (137-145) mmol/L Potassium 4.7 (3.5-5.1) mmol/L Chloride 107 (98-107) mmol/L Carbon Dioxide 21 L (22-30) mmol/L Anion Gap 9 mmol/L BUN 17 (7-17) mg/dL Creatinine 0.78 (0.52-1.04) mg/dL Est GFR (CKD-EPI)AfAm >90 (>60 ml/min/1.73 sqM) Est GFR (CKD-EPI)NonAf >90 (>60 ml/min/1.73 sqM) Glucose 99 (74-99) mg/dL Calcium 9.4 (8.4-10.2) mg/dL Total Bilirubin 0.4 (0.2-1.3) mg/dL AST 22 (14-36) U/L ALT 25 (4-34) U/L Alkaline Phosphatase 108 (38-126) U/L Total Protein 7.5 (6.3-8.2) g/dL Albumin 4.2 (3.5-5.0) g/dL Amylase 54 (30-110) U/L Lipase 84 (23-300) U/L Disposition Clinical Impression: Menorrhagia, Vaginal bleeding, Menorrhagia with irregular cycle, Acute blood loss anemia Disposition: HOME SELF-CARE Condition: Fair Instructions (If sedation given, give patient instructions): Dysmenorrhea (ED) Is patient prescribed a controlled substance at d/c from ED?: No Referrals: Kavin Ramos DO [Primary Care Provider] - 1-2 days Time of Disposition: 20:10
--- NOTE | 2023-10-02 18:35 | XR ---
EXAMINATION TYPE: XR chest 1V portable DATE OF EXAM: 10/02/2023 COMPARISON: 05/07/2021 HISTORY: Chest pain TECHNIQUE: Single frontal view of the chest is obtained. FINDINGS: There is no focal air space opacity, pleural effusion, or pneumothorax seen. The cardiac silhouette size is within normal limits. The osseous structures are intact. IMPRESSION: 1. No acute process.
[2023-10-02] MEDS: SODIUM CHLORIDE 0.9% 1,000 ML IV STA (18:39)
[2023-10-02] MEDS: ONDANSETRON 4 MG/2 ML VIAL IVP STA (18:39)
[2023-10-02 18:59] LABS: Basophils % (A) 0 %; Eosinophils # (A) 0.1 k/uL (0-0.7); Eosinophils % (A) 1 %; HCT 34.2 % (34.0-46.0); HGB 11.5 gm/dL (11.4-16.0); Lymphocytes # (A) 1.3 k/uL (1.0-4.8); Lymphocytes % (A) 12 %; MCH 29.4 pg (25.0-35.0); MCHC 33.7 g/dL (31.0-37.0); MCV 87.4 fL (80.0-100.0); Mean Platelet Volume 7.1; Monocytes # (A) 0.5 k/uL (0-1.0); Monocytes % (A) 5 %; Neutrophils # (A) 8.4 k/uL (1.3-7.7); Neutrophils % (A) 80 %; Platelet Count 369 k/uL (150-450); RBC 3.91 m/uL (3.80-5.40); RDW 13.3 % (11.5-15.5); WBC 10.5 k/uL (3.8-10.6)
[2023-10-02 19:07] LABS: ALT 25 U/L (4-34); AST 22 U/L (14-36); African American GFR (CKD) >90 (>60 ml/min/1.73 sqM); Albumin 4.2 g/dL (3.5-5.0); Alkaline Phosphatase 108 U/L (38-126); Amylase 54 U/L (30-110); Anion Gap 9 mmol/L; Blood Urea Nitrogen 17 mg/dL (7-17); Calcium 9.4 mg/dL (8.4-10.2); Carbon Dioxide 21 mmol/L (22-30); Chloride 107 mmol/L (98-107); Glucose 99 mg/dL (74-99); Lipase 84 U/L (23-300); Non-African American GFR(CKD) >90 (>60 ml/min/1.73 sqM); Potassium 4.7 mmol/L (3.5-5.1); Sodium 137 mmol/L (137-145); Total Bilirubin 0.4 mg/dL (0.2-1.3); Total Protein 7.5 g/dL (6.3-8.2)
--- NOTE | 2023-10-02 19:57 | US ---
EXAMINATION TYPE: US pelvic complete DATE OF EXAM: 10/02/2023 COMPARISON: NONE CLINICAL INDICATION: Female, 38 years old with history of vaginal bleeding; TECHNIQUE: . Transabdominal sonographic images of the pelvis were acquired. Transvaginal sonographi c images were medically necessary to better assess the following anatomy: Endometrium. Color Doppler and spectral waveforms also obtained. Date of LMP: Unknown EXAM MEASUREMENTS: Uterus: 9.1 x 4.6 x 6.1 cm Endometrial Stripe: 0.97 cm Right Ovary: 4.2 x 2.4 x 2.4 cm Left Ovary: 3.2 x 2.6 x 1.5 cm 1. Uterus: Small subserosal hypoechoic masses measuring 9.4 mm and 18 mm are present, likely fibroid s. 2. Endometrium: WNL 3. Right Ovary: Complex cyst measures up to 23 mm. 4. Left Ovary: WNL Spectral, color and waveform doppler imaging shows good arterial and venous flow within the ovaries ; there is no evidence for ovarian torsion. 5. Bilateral Adnexa: WNL 6. Posterior cul-de-sac: WNL IMPRESSION: 1. A couple of small myometrial masses, likely fibroids. 2. Endometrium appears within normal limits, with thickness 0.97 cm. 3. Small complex cyst of the right ovary.
[2023-10-02 21:24] VITALS: BP 138/84; PULSE 88; TEMP 98.9
== END 2023-10-02 21:02 | disposition home or self-care (01) ==
LOC: EC 16:07
DX: N92.1 Excessive and frequent menstruation with irregular cycle (principal); D62 Acute posthemorrhagic anemia; K21.9 Gastro-esophageal reflux disease without esophagitis; Z79.899 Other long term (current) drug therapy; Z91.09 Other allergy status, other than to drugs and biological substances
CPT/HCPCS: 36415; 80053; 82150; 83690; 85025; 71045; 93975; 76856; 99284; 96374; 96361; J2405

== ENCOUNTER 2023-10-12 05:57 | Day surgery (SDC) | payer MEDICAID ==
--- NOTE | 2023-10-11 16:21 | P.HPOB ---
History of Present Illness H&P Date: 10/11/23 Chief Complaint: Menorrhagia with irregular cycle, acute blood loss anemia This is a 38-year-old female 0 who presents for dilation and curettage with hysteroscopy secondary to menorrhagia with irregular cycle that has been going on over a month now. She has tried using Provera with no success. She is complaining of dizziness and fatigue. She also has cramping. She did go almost a month without it. Before this period started. Pelvic ultrasound showed uterus measuring 9.1 x 4.6 x 6.1 cm with endometrial thickness of 0.97 cm. She did have small probable fibroids that were up to 1.8 cm. She also had a complex cyst on her right ovary measuring 2.3 cm. Patient would like definitive surgical therapy to control her bleeding. Obstetrical history: 0. 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 Her last Pap smear was normal but she still showed positive high risk HPV. Social history: She is single. She works at [employer]. Review of Systems Constitutional: Reports fatigue, Denies chills, Denies fever Eyes: denies blurred vision, denies pain Ears, nose, mouth and throat: Denies headache, Denies sore throat Cardiovascular: Reports dyspnea on exertion, Denies chest pain, Denies shortness of breath Respiratory: Denies cough Gastrointestinal: Denies abdominal pain, Denies diarrhea, Denies nausea, Denies vomiting Genitourinary: Reports dysmenorrhea, Reports menorrhagia Menstruation: Reports menses 8 or > days, Reports period heavy Musculoskeletal: Reports low back pain, Reports myalgias Integumentary: Denies pruritus, Denies rash Neurological: Reports headaches (Prior to menses), Denies numbness, Denies weakness Psychiatric: Denies anxiety, Denies depression Past Medical History Past Medical History: GERD/Reflux Additional Past Medical History / Comment(s): Psoriasis, pituitary adenoma, irregular periods, tumor fibroids ,cysts, heavy menstrual periods History of Any Multi-Drug Resistant Organisms: None Reported Past Surgical History: Adenoidectomy, Tonsillectomy Additional Past Surgical History / Comment(s): Pilonidal cystectomy Past Anesthesia/Blood Transfusion Reactions: No Reported Reaction Past Psychological History: No Psychological Hx Reported Smoking Status: Never smoker Past Alcohol Use History: Occasional Past Drug Use History: None Reported - Past Family History Father Family Medical History: Diabetes Mellitus Mother Family Medical History: Hypertension Medications and Allergies Home Medications Medication Instructions Recorded Confirmed Type Cabergoline 0.25 mg PO SUWE 05/07/21 10/07/23 History Omeprazole Magnesium [PriLOSEC] 20 mg PO DAILY 05/07/21 10/07/23 History guaiFENesin [Mucinex] 600 mg PO DAILY 05/07/21 10/07/23 History Allergies Allergy/AdvReac Type Severity Reaction Status Date / Time adhesive tape AdvReac Rash/Hives Verified 10/07/23 09:16 Exam Osteopathic Statement: *. No significant issues noted on an osteopathic structural exam other than those noted in the History and Physical/Consult. HEENT: Within normal limits Heart: Regular rate and rhythm Lungs: Clear to auscultation bilaterally Abdomen: Soft, nontender Pelvic exam: Uterus is small, anteverted, with no adnexal masses or tenderness noted. Bloody discharge is noted. Extremities: Negative Homans Assessment and Plan (1) Menorrhagia with irregular cycle Status: Acute Code(s): N92.1 - EXCESSIVE AND FREQUENT MENSTRUATION WITH IRREGULAR CYCLE SNOMED Code(s): 836508616 (2) Acute blood loss anemia Status: Acute Code(s): D62 - ACUTE POSTHEMORRHAGIC ANEMIA SNOMED Code(s): 788443387 Plan: Proceed with dilation and curettage with hysteroscopy. I have discussed the risks, benefits, and alternative therapies for the above- mentioned procedure and for both sedation/anesthesia as well as necessary blood products administration, if indicated, as they pertain to this patient. The patient has indicated her understanding and acceptance of the risks and procedures discussed.
[~2023-10-12 05:57] MED LIST: HYDROmorphone 0.5 MG/0.5 ML SYRINGE IVP PRN; LIDOCAINE 1% (10MG/ML) FOR IV START INTRADERMA PRN; Pre Op ABX Message 1 EACH MISC MISCELLANE ONE; droPERidol 5 MG/2 ML VIAL IVP ONE
[2023-10-12] MEDS: LACTATED RINGERS 1,000 ML IV SCH (06:13)
[2023-10-12] MEDS: ONDANSETRON 4 MG/2 ML VIAL IVP ONE (06:45)
[2023-10-12] MEDS: DEXAMETHASONE SOD PHOSPHATE 4 MG/ML 1 ML VIAL IV ONE (06:45)
[2023-10-12] MEDS: FAMOTIDINE 20 MG/2 ML VIAL IVP ONE (06:47)
[2023-10-12 07:04] VITALS: RESP 16
[2023-10-12] MEDS ORDERED: SUCCINYLCHOLINE CHLORIDE 200 MG/10 ML VIAL IV ONE (07:25)
[2023-10-12] MEDS ORDERED: KETOROLAC 15 MG/ML 1 ML VIAL ONE (07:25)
[2023-10-12] MEDS ORDERED: fentaNYL (PF) 50 MCG/ML 2 ML AMP ONE (07:25)
[2023-10-12] MEDS ORDERED: LIDOCAINE 1% INJ 10MG/ML (20 ML MDV) ONE (07:25)
[2023-10-12] MEDS ORDERED: PROPOFOL 10 MG/ML 20 ML VIAL IV ONE (07:25)
[2023-10-12] MEDS ORDERED: MIDAZOLAM 2 MG/2 ML VIAL ONE (07:25)
--- NOTE | 2023-10-12 08:00 | P.OP ---
Date of Procedure: 10/12/23 Preoperative Diagnosis: Menorrhagia with irregular cycle Acute blood loss anemia Postoperative Diagnosis: Same Procedure(s) Performed: Dilation and curettage with hysteroscopy Anesthesia: PHYLLIS Surgeon: Carla Post Estimated Blood Loss (ml): 5 Pathology: other (Endometrial curettings) Condition: stable Disposition: same day Indications for Procedure: This is a 38-year-old female 0 who presents for dilation and curettage with hysteroscopy secondary to menorrhagia with irregular cycle that has been going on over a month now. She has tried using Provera with no success. She is complaining of dizziness and fatigue. She also has cramping. She did go almost a month without it. Before this period started. Pelvic ultrasound showed uterus measuring 9.1 x 4.6 x 6.1 cm with endometrial thickness of 0.97 cm. She did have small probable fibroids that were up to 1.8 cm. She also had a complex cyst on her right ovary measuring 2.3 cm. Patient would like definitive surgical therapy to control her bleeding. Operative Findings: Uterus is anteverted and sounded to 10-1/2 cm. Upon hysteroscopy, a dyssynchronous endometrial pattern with some polypoid type tissue was noted. Both tubal ostia were visualized. No adnexal masses were palpated. A minimal to moderate amount of endometrial curettings were obtained. Description of Procedure: The patient was taken to the operating room where she was placed in the d orsolithotomy position. She is prepped and draped in the normal sterile fashion. Her bladder was drained with a catheter and then removed. Examination was performed under anesthesia. Uterus was found to be slightly enlarged and anteverted with no adnexal masses palpated. Next a weighted speculum was placed in the patient's vagina right angle retractor was used to visualize the cervix. The anterior lip of the cervix was grasped with an Allis clamp. Cervix was gently dilated with the Reyes dilator and then uterus is sounded to 10-1/2 cm. Sound is removed and the cervix was gently dilated further until the hysteroscope. Hysteroscopy was performed using normal saline. The above-noted findings were made and pictures are taken. Hysteroscope was withdrawn and then the cervix was gently dilated further. A polyp forcep was introduced with minimal tissue obtained. Next a medium size sharp curette was introduced and sharp curettage was performed until a gritty texture was noted. A minimal to moderate amount of tissue was obtained. Next the Allis clamp was removed from the anterior lip of the cervix. The speculum was removed. All instrument and sponge counts are correct. Specimen was sent to pathology labeled endometrial curettings. Patient is taken to recovery room in stable condition.
[2023-10-12] MEDS: LACTATED RINGERS 1,000 ML IV ONE (08:10)
[2023-10-12 08:34] VITALS: TEMP 97
[2023-10-12 09:33] VITALS: BP 143/80; PULSE 85
== END 2023-10-12 09:35 | disposition home or self-care (01) ==
LOC: OR 05:57
PROVIDERS: ATTEND Obstetrics & Gynecology
DX: N84.0 Polyp of corpus uteri (principal); K21.9 Gastro-esophageal reflux disease without esophagitis; D62 Acute posthemorrhagic anemia; Z79.899 Other long term (current) drug therapy
CPT/HCPCS: 81025; 88305; 58558; J2250; J0330; J1100; J2405; J2001; J3010; J3490; J1885; J2704

== ENCOUNTER 2023-11-17 11:46 | Day surgery (SDC) | payer MEDICAID ==
[2023-11-17] MEDS: LACTATED RINGERS 1,000 ML IV SCH (12:36)
[2023-11-17 13:07] VITALS: RESP 16; TEMP 97.8
[2023-11-17] MEDS ORDERED: LIDOCAINE 1% INJ 10MG/ML (20 ML MDV) ONE (13:14)
[2023-11-17] MEDS ORDERED: fentaNYL (PF) 50 MCG/ML 2 ML AMP ONE (13:14)
[2023-11-17] MEDS ORDERED: PROPOFOL 10 MG/ML 20 ML VIAL IV ONE (13:14)
--- NOTE | 2023-11-17 13:28 | P.PCN ---
Date of Procedure: 11/17/23 Procedure(s) Performed: BRIEF HISTORY: Patient is a 38-year-old, pleasant, white female scheduled for an upper endoscopy as a part of evaluation of long-standing history of GERD of almost 20 years duration. Lately has been having chronic nausea for the last 6 months. Presently. PROCEDURE PERFORMED: Esophagogastroduodenoscopy with biopsy. PREOPERATIVE DIAGNOSIS: Long-standing history of GERD and chronic persistent nausea of 6 months duration. IV sedation per anesthesia. PROCEDURE: After informed consent was obtained, the patient was brought into the endoscopy unit. IV sedation was administered by Anesthesia under continuous monitoring. Initially the Olympus GIF-140 video endoscope was inserted into the mouth. Esophagus intubated without any difficulty. It was gradually advanced into the stomach and duodenum and carefully examined. The bulb and the second part of the duodenum appeared normal. Biopsies were done from the duodenum to evaluate for celiac disease. The scope at this time was withdrawn to the stomach, adequately insufflated with air, and upon careful examination, mucosa of the antrum had mild patchy areas of erythema in the prepyloric area which was biopsied. Mucosa of the, body, cardia and the fundus appeared normal. The scope was then withdrawn into the esophagus. The GE junction was located at 39 cm from the incisors. The esophagus appeared normal. There were no erosions or ulcerations seen and the patient tolerated the procedure well. IMPRESSION: 1. Mild antral gastritis. 2. No evidence of esophagitis or peptic ulcer. RECOMMENDATIONS: The findings of this examination were discussed with the patient as well as a family. She was advised to follow with the biopsy results. Continue with omeprazole 20 mg daily and follow antireflux measures. Antiemetics as needed.
[2023-11-17 14:18] VITALS: BP 122/83; PULSE 72
== END 2023-11-17 14:05 | disposition home or self-care (01) ==
LOC: ORWHC2ENDO 11:46
PROVIDERS: ATTEND Internal Medicine Gastroenterology
DX: K29.50 Unspecified chronic gastritis without bleeding (principal); K21.9 Gastro-esophageal reflux disease without esophagitis; K90.0 Celiac disease; D35.2 Benign neoplasm of pituitary gland; E66.9 Obesity, unspecified; Z68.42 Body mass index [BMI] 45.0-49.9, adult; Z79.899 Other long term (current) drug therapy
CPT/HCPCS: 81025; 88305; 88342; 43239; J2001; J3010; J2704

== ENCOUNTER → 2024-02-03 | Outpatient (CLI) | payer MEDICAID ==
[2024-02-03 10:41] LABS: ALT 12 U/L (8-44); AST 15 U/L (13-35); Albumin 3.8 g/dL (3.8-4.9); Albumin/Globulin Ratio 1.36 Ratio (1.60-3.17); Alkaline Phosphatase 90 U/L (41-126); BUN/Creat Ratio 11.89 Ratio (12.00-20.00); Blood Urea Nitrogen 10.7 mg/dL (9.0-27.0); Calcium 8.8 mg/dL (8.7-10.3); Carbon Dioxide 20.2 mmol/L (21.6-31.8); Chloride 107 mmol/L (96-109); Globulin 2.8 g/dL (1.6-3.3); Glucose 96 mg/dL (70-110); Sodium 140 mmol/L (135-145); T4, Free (Free Thyroxine) 1.16 ng/dL (0.80-1.80); Total Bilirubin 0.2 mg/dL (0.3-1.2); Total Protein 6.6 g/dL (6.2-8.2)
== END | disposition home or self-care (01) ==
LOC: LABWHC1 07:02
PROVIDERS: ATTEND Internal Medicine Endocrinology, Diabetes & Metabolism
DX: D35.2 Benign neoplasm of pituitary gland (principal)
CPT/HCPCS: 36415; 80053; 82024; 82533; 84146; 84305; 84439; 84443

== ENCOUNTER → 2024-05-26 | Outpatient (CLI) | payer MEDICAID ==
--- NOTE | 2024-05-26 09:13 | XR ---
EXAMINATION TYPE: XR KUB DATE OF EXAM: 05/26/2024 COMPARISON: NONE HISTORY: TECHNIQUE: One view abdominal series FINDINGS: The osseous structures are intact. The bowel gas pattern is nonspecific. Bowel content partially obs cures renal outline with no definite suspicious calcifications. Punctate calcifications in pelvis lik berenice vascular.. IMPRESSION: 1. Nonspecific abdomen. [facility], , 05/26/2024 9:10 AM
== END | disposition home or self-care (01) ==
LOC: RADXRMAIN 08:49
PROVIDERS: ATTEND Family Medicine
DX: R31.29 Other microscopic hematuria (principal)
CPT/HCPCS: 74018

== ENCOUNTER → 2024-06-15 | Outpatient (CLI) | payer MEDICAID | END | disposition home or self-care (01) | LOC: LABWHC1 07:04 | PROVIDERS: ATTEND Internal Medicine Endocrinology, Diabetes & Metabolism | DX: D35.2 Benign neoplasm of pituitary gland (principal) | CPT/HCPCS: 36415; 84146 ==

== ENCOUNTER → 2024-08-01 | Outpatient (CLI) | payer MEDICAID ==
--- NOTE | 2024-08-02 09:39 | MR ---
EXAMINATION TYPE: MR pituitary wo/w con DATE OF EXAM: 08/01/2024 9:55 PM COMPARISON: 08/26/2020. CLINICAL INDICATION: Female, 39 years old with history of D35.2, Benign neoplasm of pituitary gland, Left eye pain with sharp head pain at times TECHNIQUE: Multi planar, multi sequence imaging was performed through the brain. Specialized thin s equences were obtained through the pituitary gland/sella turcica. Pre-and post gadolinium sequences were obtained. IV Contrast: 13 mL Gadobutrol FINDINGS: The kitchen-white junctions, ventricular system, and basal cisterns appear unremarkable. Suspected post treatment changes the pituitary gland as finding on prior on 07/27/2020 is no longer visualized. The pituitary stalk is not deviated. After administration of gadolinium, somewhat homogeneous pituitary enhancement is seen. The intracranial arterial flow voids are intact. IMPRESSION: 1. Suspected posttreatment change of the pituitary gland. No remaining adenoma definitively visualize d. 2. No evidence of intracranial mass nor acute/subacute CVA. [facility], , 08/02/2024 9:37 AM
== END | disposition home or self-care (01) ==
LOC: RADMRIMAIN 20:30
PROVIDERS: ATTEND Internal Medicine Endocrinology, Diabetes & Metabolism
DX: D35.2 Benign neoplasm of pituitary gland (principal); H57.12 Ocular pain, left eye; R51.9 Headache, unspecified
CPT/HCPCS: 70553; A9585

== ENCOUNTER → 2024-08-02 | Outpatient (CLI) | payer MEDICAID ==
--- NOTE | 2024-08-02 15:42 | MM ---
Reason for Exam: Screening (asymptomatic). Last mammogram was performed 1 year(s) and 1 month(s) ago. Patient History: Menarche at age 9. Patient has no children. Hormonal Contraceptives, starting at age 24. Maternal grandmother had breast cancer, age 50. Paternal aunt had breast cancer, age 63. Risk Values: Talia 5 year model risk: 0.7%. NCI Lifetime model risk: 12.0%. Prior Study Comparison: 07/15/2019 Bilateral Screening Mammogram, [facility]. 05/23/2021 Bilateral Screening Mammogram, [facility]. 05/27/2021 Left Diagnostic Mammogram, [facility]. 11/26/2021 Left Diagnostic Mammogram, [facility]. 06/02/2022 Bilateral MG 3D screening mammo w/cad, [facility]. 07/27/2023 Bilateral MG 3D screening mammo w/cad, [facility]. 07/31/2023 Left MG 3D work up w/cad , [facility]. Tissue Density: The breasts are heterogeneously dense, which may obscure small masses. Findings: Analyzed By CAD. Focal asymmetry 6:00 left breast middle to posterior depth measuring 9 to 10 cm from the nipple incompletely disperses on 3-D images. Images marked in PACS. Further evaluation recommended. Other areas of asymmetric density are unchanged. Overall Assessment: Incomplete: need additional imaging evaluation, BI-RAD 0 Management: Special View Mammogram of the left breast. [facility] will attempt to contact patient to return for supplemental views and ultrasound if indicated. [facility], , 08/02/2024 3:39 PM. Electronically signed and approved by: Matty Garrison M.D. Radiologist
== END | disposition home or self-care (01) ==
LOC: RADMAMWWP 07:00
PROVIDERS: ATTEND Family Medicine
DX: Z12.31 Encounter for screening mammogram for malignant neoplasm of breast (principal); Z80.3 Family history of malignant neoplasm of breast; R92.333 Mammographic heterogeneous density, bilateral breasts
CPT/HCPCS: 77063; 77067

== ENCOUNTER → 2024-08-10 | Outpatient (CLI) | payer MEDICAID ==
--- NOTE | 2024-08-10 08:03 | MM ---
Reason for Exam: Additional evaluation requested from abnormal screening. Last screening mammogram was performed less than 1 month ago. Patient History: Menarche at age 9. Patient has no children. Hormonal Contraceptives, starting at age 24. Maternal grandmother had breast cancer, age 50. Paternal aunt had breast cancer, age 63. Risk Values: Talia 5 year model risk: 0.7%. NCI Lifetime model risk: 12.0%. Prior Study Comparison: 07/27/2023 Bilateral MG 3D screening mammo w/cad, [facility]. 07/31/2023 Left MG 3D work up w/cad , [facility]. 08/02/2024 Bilateral MG 3D screening mammo w/cad, [facility]. Tissue Density: Left: The breasts are heterogeneously dense, which may obscure small masses. Findings: Analyzed By CAD. Under compression along the lateral inferior aspect there is a area of vague increased density appears to correspond to the finding medial lateral. Suspicious abnormality in medial lateral non-. There is persistence of some distortion at the 6:00 position inferior breast on the craniocaudal compression. This may have been present in 2022. This area measures 0.5 cm centimeters from nipple. Additional evaluation is recommended with ultrasound. No suspicious groups of microcalcifications, spiculated or lobular masses, architectural distortion or other secondary signs of malignancy are mammographically apparent. Overall Assessment: Incomplete: need additional imaging evaluation, BI-RAD 0 Management: Diagnostic Breast Ultrasound of the left breast. A negative mammogram report should not preclude additional follow up of suspicious palpable abnormalities. Patient should continue monthly self breast exam. A clinical breast exam by your physician is recommended on an annual basis and results should be correlated with mammographic findings. Note on Talia scores and lifetime risk: 1. A Talia score greater than 3% is considered moderate risk. If this is the case, consider specialist referral to assess eligibility for a risk reducing agent. 2. If overall lifetime risk for the development of breast cancer is 20% or higher, the patient may qualify for future screening with alternating mammogram and breast MRI. [facility], , 08/10/2024 8:00 AM. Electronically signed and approved by: Felipe Rodriguez D.O. Radiologis
--- NOTE | 2024-08-10 10:47 | USB ---
Reason for Exam: Additional evaluation requested from abnormal screening. Patient History: Menarche at age 9. Patient has no children. Hormonal Contraceptives, starting at age 24. Maternal grandmother had breast cancer, age 50. Paternal aunt had breast cancer, age 63. Risk Values: Talia 5 year model risk: 0.7%. NCI Lifetime model risk: 12.0%. Technique: Method: Targeted. Prior Study Comparison: 07/27/2023 Bilateral MG 3D screening mammo w/cad, [facility]. 07/31/2023 Left MG 3D work up w/cad , [facility]. 08/02/2024 Bilateral MG 3D screening mammo w/cad, [facility]. Findings: The lower outer quadrant of the left breast, the axilla of the left breast and the retroareolar of the left breast were scanned. No solid or cystic masses are identified.. No discrete abnormality to correlate with the mammographic finding. Findings are likely benign and short-term follow-up is recommended. MRI could be considered if additional evaluation at this time. Overall Assessment: Probably benign, BI-RAD 3 Management: Diagnostic Mammogram of the left breast in 6 months. Diagnostic Breast MRI of both breasts. A clinical breast exam by your physician is recommended on an annual basis and results should be correlated with mammographic findings. This exam should not preclude additional follow-up of suspicious palpable abnormalities. Results were given to the patient verbally at the time of exam. [facility], , 08/10/2024 8:51 AM . Electronically signed and approved by: Felipe Rodriguez D.O. Radiologis
== END | disposition home or self-care (01) ==
LOC: RADMAMWWP 07:27
PROVIDERS: ATTEND Family Medicine
DX: R92.8 Other abnormal and inconclusive findings on diagnostic imaging of breast (principal); Z80.3 Family history of malignant neoplasm of breast; R92.332 Mammographic heterogeneous density, left breast
CPT/HCPCS: 77061; 77065; 84146

== ENCOUNTER → 2024-10-01 | Outpatient (CLI) | payer MEDICAID ==
[2024-10-01 13:30] LABS: T4, Free (Free Thyroxine) 0.96 ng/dL (0.80-1.80)
[2024-10-01 14:51] LABS: Prolactin 33.6 ng/mL (2.800-29.200)
== END | disposition home or self-care (01) ==
LOC: LABWHC1 08:37
PROVIDERS: ATTEND Internal Medicine Endocrinology, Diabetes & Metabolism
DX: D35.2 Benign neoplasm of pituitary gland (principal)
CPT/HCPCS: 36415; 82024; 82533; 84146; 84305; 84439; 84443

== ENCOUNTER → 2024-12-26 | Outpatient (CLI) | payer MEDICAID ==
--- NOTE | 2024-12-26 18:17 | US ---
EXAMINATION TYPE: US kidneys/renal and bladder DATE OF EXAM: 12/26/2024 COMPARISON: NONE CLINICAL INDICATION: Female, 39 years old with history of R10.9 UNSPECIFIED ABDOMINAL PAIN; Left flan k pain TECHNIQUE: Grayscale imaging of the bilateral kidneys and urinary bladder: FINDINGS: EXAM MEASUREMENTS: Right Kidney: 11.1 x 4.5 x 4.6 cm Left Kidney: 10.1 x 5.2 x 4.9 cm Difficult and limited study due to patient body habitus Right Kidney: visualized portions appear wnl Left Kidney: visualized portions appear wnl Bladder: wnl Bilateral Jets seen: no IMPRESSION: Grossly unremarkable study [facility], , 12/26/2024 6:15 PM
== END | disposition home or self-care (01) ==
LOC: RADUSWWP 15:58
PROVIDERS: ATTEND Family Medicine
DX: R10.9 Unspecified abdominal pain (principal)
CPT/HCPCS: 76770

== ENCOUNTER → 2025-01-20 | Outpatient (CLI) | payer MEDICAID ==
--- NOTE | 2025-01-20 09:05 | XR ---
EXAMINATION TYPE: XR thoracic spine 3 views, XR thoraco lumbar junction 2 views DATE OF EXAM: 01/20/2025 6:53 AM COMPARISON: None CLINICAL INDICATION: Female, 39 years old with history of R10.9 Abd Pain; PHH, pain FINDINGS: Thoracic spine: 12 rib bearing thoracic vertebral bodies. All pedicles are visualized. There is mild degenerative dis c disease lower thoracic spine. Thoracolumbar Junction: The coned-down images of the thoracolumbar junction show more focal moderate degenerative disc diseas e possibly T11-T12 with minimal anterior wedging of a single vertebral body probably T12. Accentuated kyphosis here. Remaining vertebral body heights are preserved and alignment is maintained. COMBINED IMPRESSION: 1. Mild anterior wedging (minimal 10% anterior height loss) of a lower thoracic vertebral body, proba natasha T12. This is age indeterminate. Correlate for any focal pain at this level. 2. Focal moderate degenerative disc disease likely T11-T12. Otherwise, mild degenerative disc disease elsewhere in the lower thoracic spine. 3. No other vertebral compression collapse or malalignment. [facility], , 01/20/2025 9:02 AM
== END | disposition home or self-care (01) ==
LOC: RADMRIMAIN 06:05
PROVIDERS: ATTEND Family Medicine
DX: M48.54XA Collapsed vertebra, not elsewhere classified, thoracic region, initial encounter for fracture (principal); M51.369 Other intervertebral disc degeneration, lumbar region without mention of lumbar back pain or lower extremity pain; M51.34 Other intervertebral disc degeneration, thoracic region
CPT/HCPCS: 72070; 72080

== ENCOUNTER → 2025-02-07 | Outpatient (CLI) | payer MEDICAID ==
--- NOTE | 2025-02-07 08:15 | MM ---
Reason for Exam: Follow-up at short interval from prior study. Last screening mammogram was performed 6 month(s) ago. Patient History: Menarche at age 9. Patient has no children. Premenopausal. Hormonal Contraceptives, starting at age 24. Maternal grandmother had breast cancer, age 50. Paternal aunt had breast cancer, age 63. Last menstrual period: 01/12/2025 Risk Values: Talia 5 year model risk: 0.7%. NCI Lifetime model risk: 12.0%. Prior Study Comparison: 07/31/2023 Left MG 3D work up w/cad LT, [facility]. 08/02/2024 Bilateral MG 3D screening mammo w/cad, [facility]. 08/10/2024 Left MG 3D work up w/cad LT, [facility]. Tissue Density: Left: There are scattered areas of fibroglandular density. Findings: Analyzed By CAD. There are grouped small benign appearing round calcifications in the left breast redemonstrated. Benign appearing left axillary lymph nodes are again seen. No suspicious new mass or worrisome cluster of microcalcification in the left breast. Overall Assessment: Benign, BI-RAD 2 Management: Screening Mammogram of both breasts in 6 months. Return to routine follow-up. Results were given to the patient verbally at the time of exam. Patient should continue monthly self-breast exams. A clinical breast exam by your physician is recommended on an annual basis. This exam should not preclude additional follow-up of suspicious palpable abnormalities. Note on Talia scores and lifetime risk: 1. A Talia score greater than 3% is considered moderate risk. If this is the case, consider specialist referral to assess eligibility for a risk reducing agent. 2. If overall lifetime risk for the development of breast cancer is 20% or higher, the patient may qualify for future screening with alternating mammogram and breast MRI. [facility], , 02/07/2025 8:13 AM. Electronically signed and approved by: Don Carson M.D.
== END | disposition home or self-care (01) ==
LOC: RADMAMWWP 07:48
PROVIDERS: ATTEND Family Medicine
DX: R92.322 Mammographic fibroglandular density, left breast (principal); Z92.0 Personal history of contraception; Z80.3 Family history of malignant neoplasm of breast
CPT/HCPCS: 77061; 77065